=== PATIENT | male | born 1945 | race Caucasian/White ===

== ENCOUNTER 2017-12-17 01:58 | Observation (INO) | payer MEDICARE, OTHER ==
[~2017-12-17] VITALS: Ht 165.1 cm; Wt 81.0 kg
[2017-12-17] MEDS ORDERED: IOHEXOL 350 MG/ML 10 ML VIAL (for RAD DIAG) IVCONTRAST ONE (01:59)
[2017-12-17 02:03] VITALS: BP 131/73; PULSE 93; RESP 18; TEMP 98.3; O2SAT 97
[2017-12-17] MEDS ORDERED: SODIUM CHLORIDE 0.9% FLUSH 10 ML FLUSH IVF PRN ×2 (03:15→04:45)
[2017-12-17 03:30] VITALS: RESP 14; O2SAT 97
--- NOTE | 2017-12-17 03:38 | RADRPT ---
EXAM DATE/TIME: 12/17/2017 03:18 [facility] COMPARISON: No previous studies available for comparison. INDICATIONS : Cough. MEDICAL HISTORY : None. SURGICAL HISTORY : None. ENCOUNTER: Initial ACUITY: 1 day PAIN SCORE: 0/10 LOCATION: Bilateral chest FINDINGS: A single view of the chest demonstrates the lungs to be symmetrically aerated without evidence of mas s, infiltrate or effusion. The cardiomediastinal contours are unremarkable. Osseous structures are intact. CONCLUSION: No acute disease. Efren Krishnan MD on December 17, 2017 at 3:36 Board Certified Radiologist. This report was verified electronically.
[2017-12-17 03:45] LABS: AUTOMATED NEUTROPHIL # 3.7 TH/MM3 (1.8-7.7); BASOPHIL # 0.1 TH/MM3 (0-0.2); BASOPHIL % 2.2 % (0.0-2.0); EOSINOPHIL # 0.5 TH/MM3 (0-0.4); EOSINOPHIL % 7.9 % (0.0-4.0); HEMATOCRIT 41.1 % (39.0-51.0); HEMOGLOBIN 14.3 GM/DL (13.0-17.0); LYMPH % 27.7 % (9.0-44.0); LYMPHOCYTE # 1.9 TH/MM3 (1.0-4.8); MEAN CELL VOLUME 90.5 FL (80.0-100.0); MEAN CORPUSCULAR HEMOGLOBIN 31.4 PG (27.0-34.0); MEAN CORPUSCULAR HGB CONC 34.7 % (32.0-36.0); MEAN PLATELET VOLUME 8.4 FL (7.0-11.0); MONO % 7.7 % (0.0-8.0); MONOCYTE # 0.5 TH/MM3 (0-0.9); NEUT % 54.5 % (16.0-70.0); PLATELET COUNT 296 TH/MM3 (150-450); RED BLOOD COUNT 4.54 MIL/MM3 (4.50-5.90); RED CELL DISTRIBUTION WIDTH 13.3 % (11.6-17.2); WHITE BLOOD COUNT 6.8 TH/MM3 (4.0-11.0)
[2017-12-17 04:05] LABS: PROTHROMBIN TIME - PATIENT 10.4 SEC (9.8-11.6)
[2017-12-17 04:18] LABS: ALBUMIN 3.8 GM/DL (3.4-5.0); ALT (GPT) 28 U/L (12-78); AST (GOT) 17 U/L (15-37); BICARBONATE 27.8 MEQ/L (21.0-32.0); BLOOD UREA NITROGEN 13 MG/DL (7-18); CALCIUM 8.6 MG/DL (8.5-10.1); CHLORIDE 105 MEQ/L (98-107); CREATININE 1.12 MG/DL (0.60-1.30); GLOMERULAR FILTRATION RATE 65 ML/MIN (>89); GLUCOSE,RANDOM 103 MG/DL (74-106); MAGNESIUM 1.8 MG/DL (1.5-2.5); SODIUM (NA) 140 MEQ/L (136-145)
[2017-12-17 04:23] LABS: ALKALINE PHOSPHATASE 76 U/L (45-117); TOTAL BILIRUBIN ADULT 0.9 MG/DL (0.2-1.0); TOTAL PROTEIN 7.4 GM/DL (6.4-8.2); TROPONIN I LESS THAN 0.02 NG/ML (0.02-0.05)
--- NOTE | 2017-12-17 04:25 | PD ---
HPI Chief Complaint: Respiratory Symptoms Time Seen by Provider: 03:04 Travel History International Travel<30 days: No Contact w/Intl Traveler<30days: No Traveled to known affect area: No History of Present Illness HPI The patient is a 72 year old male who presents to the [facility] emergency department with a history of cough and shortness of breath that he reports began shortly after arriving in the area at the beginning of August. The patient reports that he initially attributed this to allergies. He reports that he had similar symptoms of cough and congestion in the past when he comes to [place]. He [place] He denies having a local primary care physician. He reports that he was seen in the urgent care center on November 02 and November 19 for the symptoms. He had a chest x-ray done that was unremarkable. He reports that he has been treated with a pro-air inhaler, prednisone, benzonatate capsules, doxycycline, and a azithromycin, however the symptoms continue to recur. He reports that initially the pro-air was helping, however it has not been helping recently. He reports that his symptoms get worse at night. He reports the symptoms have worsened for the last 3 nights. He reports that he develops coughing spells and shortness of breath. He reports that he develops worsening shortness of breath when he lies down at night. He denies having any chest pain or chest pressure. He reports that his cough is dry in character. He denies having any lower extremity edema, calf pain, or erythema. He denies having any prior history of coronary artery disease. He reports that he did drive to the area from his home state just after [place]. He denies any prior history of DVT or PE. On review of systems otherwise, he denies having any recent fevers, head congestion, neck pain, abdominal pain, vomiting, diarrhea, urinary symptoms, or neurologic symptoms. [facility] Past Medical History Narrative Medical The patient's past medical history is significant for anxiety disorder, history of being hard of hearing, history of prostate cancer treated with radiation therapy in 2006, prior history of tobacco use 2 packs per day, however he quit smoking 25 years ago. Cancer: Yes (hx prostrate) Diminished Hearing: Yes (hearing aids) Immunizations Current: Yes Past Surgical History Narrative Surgical The patient's past surgical history is significant for prostate surgery Genitourinary Surgery: Yes (prostate cancer) Social History Alcohol Use: No Tobacco Use: No Substance Use: No Allergies-Medications (Allergen,Severity, Reaction): Coded Allergies: No Known Allergies (Unverified , 12/17/17) Review of Systems Except as stated in HPI: all other systems reviewed are Neg General / Constitutional: No: Fever Eyes: No: Visual changes HENT: No: Headaches Cardiovascular: Positive: Dyspnea on exertion, No: Chest Pain or Discomfort Respiratory: Positive: Cough, Shortness of Breath Gastrointestinal: No: Nausea, Vomiting, Diarrhea, Abdominal Pain, Loss of Appetite Genitourinary: No: Dysuria Musculoskeletal: No: Pain Skin: No Rash Neurologic: No: Weakness Psychiatric: No: Depression Endocrine: No: Polydipsia Hematologic/Lymphatic: No: Easy Bruising Physical Exam Narrative General: The patient is a well-developed well-nourished male in no acute distress. Head and Neck exam: Head is normocephalic atraumatic. Eyes: EOMI, pupils are equal round and reactive to light. Nose: Midline septum with pink mucous membranes Mouth: Dentition unremarkable. Moist mucus membranes. Posterior oropharynx is not erythematous. No tonsillar hypertrophy. Uvula midline. Airway patent. Neck: No palpable lymphadenopathy. No nuchal rigidity. No thyromegaly. Cardiovascular: Regular rate and rhythm without murmurs, gallops, or rubs. Lungs: Clear to auscultation bilaterally. No wheezes, rhonchi, or rales. Abdomen: Soft, without tenderness to palpation in all 4 quadrants of the abdomen. No guarding, rebound, or rigidity. Normal bowel sounds are audible. No tenderness on palpation of McBurney's point. Negative Gonzalez sign. Extremities: No clubbing, cyanosis, or edema. 2+ pulses in all 4 extremities. Back: No spinous process tenderness to palpation. No costovertebral angle tenderness to palpation. Neurologic Exam: No calf tenderness on palpation. Skin Exam: No rash noted. Intact skin that is warm and dry. Data Data Last Documented VS Vital Signs Date Time Temp Pulse Resp B/P (MAP) Pulse Ox O2 Delivery O2 Flow Rate FiO2 12/17/17 06:00 102 17 141/77 (98) 100 Room Air 12/17/17 02:03 98.3 Orders Orders Complete Blood Count With Diff (12/17/17 03:05) Comprehensive Metabolic Panel (12/17/17 03:05) B-Type Natriuretic Peptide (12/17/17 03:05) Act Partial Throm Time (Ptt) (12/17/17 03:05) Prothrombin Time / Inr (Pt) (12/17/17 03:05) Magnesium (Mg) (12/17/17 03:05) Ckmb (Isoenzyme) Profile (12/17/17 03:05) Troponin I (12/17/17 03:05) Influenzae A/B Antigen (12/17/17 03:05) Blood Culture (12/17/17 03:05) Iv Access Insert/Monitor (12/17/17 03:05) Electrocardiogram (12/17/17 03:05) Ecg Monitoring (12/17/17 03:05) Oximetry (12/17/17 03:05) Oxygen Administration (12/17/17 03:05) Chest, Single Ap (12/17/17 03:05) Sodium Chloride 0.9% Flush (Ns Flush) (12/17/17 03:15) Lactic Acid Sepsis Protocol (12/17/17 03:05) CKMB (12/17/17 03:30) CKMB% (12/17/17 03:30) Levofloxacin 750 Mg Premix Inj (Levaquin (12/17/17 04:45) Ct Pulmonary Angiogram (12/17/17 04:40) Sodium Chloride 0.9% Flush (Ns Flush) (12/17/17 04:45) Methylprednisolone So Succ Inj (Solumedr (12/17/17 04:45) Albuterol-Ipratropium Neb (Duoneb Neb) (12/17/17 04:45) Iohexol 350 Inj (Omnipaque 350 Inj) (12/17/17 01:59) Labs Laboratory Tests Test 12/17/17 03:30 White Blood Count 6.8 TH/MM3 Red Blood Count 4.54 MIL/MM3 Hemoglobin 14.3 GM/DL Hematocrit 41.1 % Mean Corpuscular Volume 90.5 FL Mean Corpuscular Hemoglobin 31.4 PG Mean Corpuscular Hemoglobin Concent 34.7 % Red Cell Distribution Width 13.3 % Platelet Count 296 TH/MM3 Mean Platelet Volume 8.4 FL Neutrophils (%) (Auto) 54.5 % Lymphocytes (%) (Auto) 27.7 % Monocytes (%) (Auto) 7.7 % Eosinophils (%) (Auto) 7.9 % Basophils (%) (Auto) 2.2 % Neutrophils # (Auto) 3.7 TH/MM3 Lymphocytes # (Auto) 1.9 TH/MM3 Monocytes # (Auto) 0.5 TH/MM3 Eosinophils # (Auto) 0.5 TH/MM3 Basophils # (Auto) 0.1 TH/MM3 CBC Comment DIFF FINAL Differential Comment Prothrombin Time 10.4 SEC Prothromb Time International Ratio 1.0 RATIO Activated Partial Thromboplast Time 25.1 SEC Blood Urea Nitrogen 13 MG/DL Creatinine 1.12 MG/DL Random Glucose 103 MG/DL Total Protein 7.4 GM/DL Albumin 3.8 GM/DL Calcium Level 8.6 MG/DL Magnesium Level 1.8 MG/DL Alkaline Phosphatase 76 U/L Aspartate Amino Transf (AST/SGOT) 17 U/L Alanine Aminotransferase (ALT/SGPT) 28 U/L Total Bilirubin 0.9 MG/DL Sodium Level 140 MEQ/L Potassium Level 3.5 MEQ/L Chloride Level 105 MEQ/L Carbon Dioxide Level 27.8 MEQ/L Anion Gap 7 MEQ/L Estimat Glomerular Filtration Rate 65 ML/MIN Lactic Acid Level 1.1 mmol/L Total Creatine Kinase 122 U/L Creatine Kinase MB 1.7 NG/ML Troponin I LESS THAN 0.02 NG/ML B-Type Natriuretic Peptide LESS THAN 2 PG/ML MDM Medical Decision Making Medical Screen Exam Complete: Yes Emergency Medical Condition: Yes Medical Record Reviewed: Yes Differential Diagnosis Shortness of breath is an atypical finding of an acute coronary syndrome, versus seasonal allergies, versus COPD, versus pneumothorax, versus pneumonia, versus pulmonary embolism, versus acid reflux Narrative Course During the course of the patient's emergency department visit, the patient's history, examination, and differential diagnosis were reviewed with the patient. The patient was placed on a cardiac monitor technician with oximetry and frequent blood pressure monitoring. The patient had IV access obtained and blood work sent for analysis. The patient was initially provided duo nebs, Solu-Medrol 125 mg IV, Levaquin 750 IV. The patient's laboratory studies were reviewed and remarkable for white count of 6.8, hemoglobin 14.3, platelets 296 with 7.9 eosinophils, CMP is remarkable for GFR 65, cardiac enzymes within normal limits, BNP is less than 2, lactic acid 1.1. PT PTT within normal limits. Radiology studies were reviewed and remarkable for a chest x-ray that shows no acute abnormality. CTA to rule out PE shows no infiltrate or mass, coronary artery calcifications are noted, wall thickening of the distal esophagus is noted. There are some small paraesophageal lymph nodes noted. Endoscopy may be warranted. Given the patient's symptoms of shortness of breath and coronary artery calcifications, the patient will be admitted to the chest pain center for rule out serial cardiac enzyme protocol. The patient was given aspirin, nitroglycerin 1 inch to the chest wall. The patient was also given Protonix 40 mg IV. He was instructed regarding his CT scan findings and the importance of following up with a senior interactive developer for endoscopy. The patient's results were discussed with the patient, including the plan of care. I explained that further testing and/ or monitoring is indicated based on the patient's history, examination, and/ or laboratory findings. Therefore, I recommended admission for additional evaluation. The patient expressed understanding and was agreeable with this plan. The patient was admitted to the hospital in stable condition and sent to a bed under the care of the chest pain center. Diagnosis Primary Impression: Shortness of breath Additional Impression: Esophageal thickening Admitting Information Admitting Physician Requests: Observation Brynn Holder MD Dec 17, 2017 04:25
[2017-12-17] MEDS ORDERED: LEVOFLOXACIN 750 MG PREMIX INJ 150 ML IV ONE (04:45)
[2017-12-17] MEDS ORDERED: methylPREDNISolone SOD SUCC 125 MG/2 ML VIAL IV PUSH ONE (04:45)
[2017-12-17] MEDS: RESP: ALBUTEROL 2.5 MG/IPRATROPIUM 0.5 MG NEB (SCH) INH (04:45)
--- NOTE | 2017-12-17 05:40 | RADRPT ---
EXAM DATE/TIME: 12/17/2017 05:15 [facility] COMPARISON: No previous studies available for comparison. INDICATIONS : Shortness of breath. IV CONTRAST: 62 cc Omnipaque 350 (iohexol) IV RADIATION DOSE: 9.97 CTDIvol (mGy) MEDICAL HISTORY : Hypertension. Carcinoma, prostate. SURGICAL HISTORY : None. ENCOUNTER: Initial ACUITY: 1 day PAIN SCALE: 0/10 LOCATION: Bilateral chest TECHNIQUE: Volumetric scanning of the chest was performed using a pulmonary embolism protocol MIP images were re constructed. Using automated exposure control and adjustment of the mA and/or kV according to patien t size, radiation dose was kept as low as reasonably achievable to obtain optimal diagnostic quality images. DICOM format image data is available electronically for review and comparison. Follow-up recommendations for detected pulmonary nodules are based at a minimum on nodule size and pa tient risk factors according to Fleischner Society Guidelines. FINDINGS: PULMONARY ARTERIES: No filling defects are seen in the pulmonary arteries through the segmental level. LUNGS: There is no consolidation or pneumothorax . No concerning pulmonary nodule is visualized. Calcified granuloma right lung. PLEURAE: There is no pleural thickening or pleural effusion. MEDIASTINUM: There is good visualization of the great vessels of the middle mediastinum. No evidence of mediastin al or hilar adenopathy/mass. Coronary artery calcifications. MUSCULOSKELETAL: Within normal limits for patient age. MISCELLANEOUS: The visualized upper abdominal organs demonstrate no acute abnormality. Circumferential wall thickeni ng distal esophagus. There are some small paraesophageal lymph nodes. CONCLUSION: 1. No infiltrate or mass. 2. Coronary artery calcifications. 3. Wall thickening distal esophagus. There are some small paraesophageal lymph nodes. Endoscopy may b e oriented. Efren Krishnan MD on December 17, 2017 at 5:35 Board Certified Radiologist. This report was verified electronically.
[2017-12-17 06:00] VITALS: BP 141/77; PULSE 102; RESP 17; O2SAT 100
[2017-12-17] MEDS ORDERED: ASPIRIN 81 MG CHEW TAB CHEW ONE (06:30)
[2017-12-17] MEDS ORDERED: PANTOPRAZOLE SODIUM 40 MG VIAL IV PUSH ONE (06:30)
[2017-12-17] MEDS ORDERED: NITROGLYCERIN 2% OINT 1 GM PACKET TOPICAL ONE (06:30)
[2017-12-17] MEDS ORDERED: ACETAMINOPHEN 500 MG CPLT PO PRN (06:30)
[2017-12-17] MEDS ORDERED: SODIUM CHLORIDE 0.9% FLUSH 10 ML FLUSH IV FLUSH PRN (06:30)
[2017-12-17 07:24] LABS: TROPONIN I LESS THAN 0.02 NG/ML (0.02-0.05)
[2017-12-17] MEDS ORDERED: LORazepam 0.5 MG TAB PO ONE (09:00)
[2017-12-17] MEDS ORDERED: SODIUM CHLORIDE 0.9% FLUSH 10 ML FLUSH IV FLUSH SCH (09:00)
[2017-12-17] MEDS ORDERED: FAMOTIDINE 20 MG TAB PO SCH (09:00)
[2017-12-17] MEDS ORDERED: PARO30TA2 PO (09:06)
[2017-12-17] MEDS ORDERED: CIAL10TA PO (09:06)
[2017-12-17] MEDS ORDERED: ATOR10TA15 PO (09:06)
[2017-12-17] MEDS ORDERED: LISI10TA3 PO (09:06)
[2017-12-17] MEDS ORDERED: BUSP15TA PO (09:06)
[2017-12-17] MEDS ORDERED: ASPI-516 CHEW (09:06)
[2017-12-17] MEDS ORDERED: VIAG50TA PO (09:06)
[2017-12-17] MEDS ORDERED: LEVO50TA4 PO (09:06)
[2017-12-17 09:08] VITALS: BP 124/62; PULSE 99; RESP 18; O2SAT 99
[2017-12-17] MEDS ORDERED: LISINOPRIL 10 MG TAB PO SCH (09:30)
--- NOTE | 2017-12-17 09:33 | HHI.HP ---
HPI Primary Care Physician No Primary Care Physician Chief Complaint Shortness of breath and cough History of Present Illness This is a 72-year-old male with history of hypertension, hyperlipidemia, hypothyroidism, depression that presents to ED with complaint of shortness breath and cough for couple months. States this happens every time he comes to [place]. He has been to an urgent care center twice was given medication both times up a little bit but recurs after medicine ends. Believes he is on an antibiotic, prednisone, and inhaler one point. Denies any knowledge of coronary artery disease and states he has had stress test December 2016 in [place] that was okay. Not recall ever having a cardiac catheterization. Denies having any chest discomfort. His complaint is shortness of breath and coughing. Cough has been nonproductive. Denies fevers or chills. Denies inspirational chest discomfort. He is going to try to go back to [place] tomorrow. Review of Systems General: Patient denies fevers, chills recent, and recent travel HEENT: Patient denies headache, sore throat, difficulty swallowing. Cardiovascular: Denies chest discomfort as mentioned above. Denies sensation of heart beating rapidly or irregularly. No syncope. Denies diaphoresis. Respiratory: He has had a nonproductive cough. He has been short of breath. Denies inspirational chest discomfort. Denies wheezing or hemoptysis. GI: Patient denies nausea, vomiting, diarrhea, abdominal pain, bloody stools. Musculoskeletal: Patient denies joint pain or edema. Denies calf pain or edema. Neurovascular: Patient denies numbness, tingling, weakness in extremities. Denies headache. Endocrine: Denies polyuria and polydipsia. Hematologic: Denies easy bruising. Skin: Denies rash or itching. Past Family Social History Allergies: Coded Allergies: No Known Allergies (Unverified , 12/17/17) Past Medical History Hypertension, hyperlipidemia, hypothyroidism, depression. Denies CAD and diabetes. Reported Medications Reported Meds & Active Scripts Active Reported Cialis (Tadalafil) 10 Mg Tab 10 Mg PO DAILY PRN Do not exceed 1 dose/day. Viagra (Sildenafil Citrate) 50 Mg Tab 50 Mg PO DAILY PRN Aspirin 81 Mg Chew 81 Mg CHEW DAILY Lisinopril 10 Mg Tab 10 Mg PO DAILY Paroxetine (Paroxetine HCl) 30 Mg Tab 30 Mg PO DAILY Levothyroxine (Levothyroxine Sodium) 50 Mcg Tab 50 Mcg PO DAILY Buspirone (Buspirone HCl) 15 Mg Tab 15 Mg PO BID Atorvastatin (Atorvastatin Calcium) 10 Mg Tab 10 Mg PO HS Active Ordered Medications Current Medications Medications (Trade) Dose Ordered Sig/Brandy Route Start Time Stop Time Status Last Admin (NS Flush) 2 ml UNSCH PRN IVF 12/17/17 03:15 (NS Flush) 2 ml UNSCH PRN IVF 12/17/17 04:45 (NS Flush) 2 ml UNSCH PRN IV FLUSH 12/17/17 06:30 (NS Flush) 2 ml BID IV FLUSH 12/17/17 09:00 (Tylenol) 500 mg Q4H PRN PO 12/17/17 06:30 (Pepcid) 20 mg BID PO 12/17/17 09:00 (Lipitor) 10 mg HS PO 12/17/17 21:00 UNV (Buspar) 15 mg BID PO 12/17/17 09:30 UNV (Synthroid) 50 mcg DAILY PO 12/17/17 09:30 UNV (Prinivil) 10 mg DAILY PO 12/17/17 09:30 UNV Non-Formulary Medication 30 mg DAILY PO 12/17/17 09:30 UNV Family History Denies family history of CAD. Social History Quit smoking 20 years ago but prior that he smoked on average up to 2 packs of cigarettes a day denies alcohol or illicit drug use. Physical Exam Vital Signs Vital Signs Date Time Temp Pulse Resp B/P (MAP) Pulse Ox O2 Delivery O2 Flow Rate FiO2 12/17/17 09:08 99 18 124/62 (82) 99 Room Air 12/17/17 06:00 102 17 141/77 (98) 100 Room Air 12/17/17 03:30 14 97 Room Air 12/17/17 02:03 98.3 93 18 131/73 (92) 97 Physical Exam GENERAL: This is a well-nourished, well-developed patient, in no apparent distress. Patient speaks in clear complete sentences. Patient is pleasant. HEENT: Head is atraumatic and normocephalic. Neck is supple without lymphadenopathy and trachea is midline. No JVD or carotid bruits. CARDIOVASCULAR: Regular rate and rhythm without murmurs, gallops, or rubs. RESPIRATORY: Clear to auscultation. Breath sounds equal bilaterally. No wheezes , rales, or rhonchi. Chest wall is nontender. No use of accessory muscles. GASTROINTESTINAL: Abdomen is nontender, nondistended. Abdomen soft. No obvious pulsatile mass or bruit. No CVA tenderness. Strong femoral pulses bilaterally. Normal bowel sounds in all quadrants. MUSCULOSKELETAL: Patient is moving upper and lower extremities freely. No calf tenderness or edema, no Homans sign. Strong pulses in upper and lower extremities. NEUROLOGICAL: Patient is alert and oriented. Cranial nerves 2-12 are grossly intact. No focal deficits and speech is clear. SKIN: No rash and turgor is normal. Laboratory Laboratory Tests Test 12/17/17 03:30 12/17/17 06:40 White Blood Count 6.8 Red Blood Count 4.54 Hemoglobin 14.3 Hematocrit 41.1 Mean Corpuscular Volume 90.5 Mean Corpuscular Hemoglobin 31.4 Mean Corpuscular Hemoglobin Concent 34.7 Red Cell Distribution Width 13.3 Platelet Count 296 Mean Platelet Volume 8.4 Neutrophils (%) (Auto) 54.5 Lymphocytes (%) (Auto) 27.7 Monocytes (%) (Auto) 7.7 Eosinophils (%) (Auto) 7.9 Basophils (%) (Auto) 2.2 Neutrophils # (Auto) 3.7 Lymphocytes # (Auto) 1.9 Monocytes # (Auto) 0.5 Eosinophils # (Auto) 0.5 Basophils # (Auto) 0.1 CBC Comment DIFF FINAL Differential Comment Prothrombin Time 10.4 Prothromb Time International Ratio 1.0 Activated Partial Thromboplast Time 25.1 Blood Urea Nitrogen 13 Creatinine 1.12 Random Glucose 103 Total Protein 7.4 Albumin 3.8 Calcium Level 8.6 Magnesium Level 1.8 Alkaline Phosphatase 76 Aspartate Amino Transf (AST/SGOT) 17 Alanine Aminotransferase (ALT/SGPT) 28 Total Bilirubin 0.9 Sodium Level 140 Potassium Level 3.5 Chloride Level 105 Carbon Dioxide Level 27.8 Anion Gap 7 Estimat Glomerular Filtration Rate 65 Lactic Acid Level 1.1 Total Creatine Kinase 122 120 Creatine Kinase MB 1.7 2.0 Troponin I LESS THAN 0.02 LESS THAN 0.02 B-Type Natriuretic Peptide LESS THAN 2 Date/Time Source Procedure Growth Status 12/17/17 03:30 Blood Peripheral Aerobic Blood Culture Pending Received 12/17/17 03:30 Blood Peripheral Anaerobic Blood Culture Pending Received 12/17/17 03:30 Nasal Aspirate Influenza Types A,B Antigen (JORGE) - Final NEGATIVE FOR FLU A AND B ANTIGEN.... Complete Result Diagram: 12/17/1732912/17/17329 Imaging Chest x-ray reveals nothing acute. CT pulmonary angiogram read by radiologist as no PE. There is wall thickening of the distal esophagus and paraesophageal lymph nodes. Recommend outpatient endoscopy. Course EKGs are normal sinus rhythm without significant ST segment depressions or elevations. Caprini VTE Risk Assessment Caprini VTE Risk Assessment: Mod/High Risk (score >= 2) Caprini Risk Assessment Model Point Value = 1 Point Value = 2 Point Value = 3 Point Value = 5 Age 41-60 Minor surgery BMI > 25 kg/m2 Swollen legs Varicose veins or History of unexplained or recurrent spontaneous Oral contraceptives or hormone replacement Sepsis (< 1 month) Serious lung disease, including pneumonia (< 1 month) Abnormal pulmonary function Acute myocardial infarction Congestive heart failure (< 1 month) History of inflammatory bowel disease Medical patient at bed rest Age 61-74 Arthroscopic surgery Major open surgery (> 45 min) Laparoscopic surgery (> 45 min) Malignancy Confined to bed (> 72 hours) Immobilizing plaster cast Central venous access Age >= 75 History of VTE Family history of VTE Factor V Leiden Prothrombin [id number] Lupus anticoagulant Anticardiolipin antibodies Elevated serum homocysteine Heparin-induced thrombocytopenia Other congenital or acquired thrombophilia Stroke (< 1 month) Elective arthroplasty Hip, pelvis, or leg fracture Acute spinal cord injury (< 1 month) Prophylaxis Regimen Total Risk Factor Score Risk Level Prophylaxis Regimen 0-1 Low Early ambulation 2 Moderate Order ONE of the following: *Sequential Compression Device (SCD) *Heparin 5000 units SQ BID 3-4 Higher Order ONE of the following medications: *Heparin 5000 units SQ TID *Enoxaparin/Lovenox 40 mg SQ daily (WT < 150 kg, CrCl > 30 mL/min) *Enoxaparin/Lovenox 30 mg SQ daily (WT < 150 kg, CrCl > 10-29 mL/min) *Enoxaparin/Lovenox 30 mg SQ BID (WT < 150 kg, CrCl > 30 mL/min) AND/OR *Sequential Compression Device (SCD) 5 or more Highest Order ONE of the following medications: *Heparin 5000 units SQ TID (Preferred with Epidurals) *Enoxaparin/Lovenox 40 mg SQ daily (WT < 150 kg, CrCl > 30 mL/min) *Enoxaparin/Lovenox 30 mg SQ daily (WT < 150 kg, CrCl > 10-29 mL/min) *Enoxaparin/Lovenox 30 mg SQ BID (WT < 150 kg, CrCl > 30 mL/min) AND *Sequential Compression Device (SCD) Assessment and Plan Assessment and Plan * Dyspnea: Patient has had serial cardiac enzymes and EKGs for ruling out purposes. Seen by Dr. Moris Quiros of cardiology in the chest pain center. CT pulmonary diagram also revealed coronary calcifications. At this time patient will undergo a Lexiscan myocardial perfusion stress test. He will be discharged home if the stress test is nonischemic with instructions to follow- up with PCP. Return to ED for interval issues. * Hypertension: Resume medications. * Hyperlipidemia: Continue medications. * Hypothyroidism: Continue medication. * Anxiety/depression: Continue medications. Patient is stable at this time. He is agreeable to this plan. Andrew Rangel Dec 17, 2017 09:33
--- NOTE | 2017-12-17 09:58 | HHI.DCPOC ---
Discharge Care Plan Diagnosis: (1) Shortness of breath (2) Esophageal thickening (3) Hypertension (4) Hyperlipidemia Goals to Promote Your Health You will need to follow up with GI to have an endoscopy performed to evaluate esophageal thickening and paraesophageal lymph nodes. * To prevent worsening of your condition and complications * To maintain your health at the optimal level Directions to Meet Your Goals Take your medications as prescribed Follow your dietary instruction Follow activity as directed Keep your appointments as scheduled Take your immunizations and boosters as scheduled If your symptoms worsen call your PCP, if no PCP go to Urgent Care Center or Emergency Room Smoking is Dangerous to Your Health. Avoid second hand smoke Call the 24-hour hour crisis hotline for domestic abuse at Andrew Rangel Dec 17, 2017 09:58
[2017-12-17 10:11] VITALS: BP 106/86; PULSE 102; RESP 18; O2SAT 98
[2017-12-17 11:05] VITALS: BP 134/78
[2017-12-17] MEDS ORDERED: PARoxetine HCL 20 MG TAB PO SCH (12:00)
[2017-12-17] MEDS ORDERED: busPIRone HCL 5 MG TAB PO SCH (12:00)
[2017-12-17] MEDS ORDERED: REGADENOSON INJ 0.4 MG/5 ML SYR ONE (12:00)
[2017-12-17] MEDS ORDERED: LEVOTHYROXINE SODIUM 50 MCG TAB PO SCH (12:00)
--- NOTE | 2017-12-17 13:57 | RADRPT ---
EXAM DATE/TIME: 12/17/2017 11:26 [facility] COMPARISON: No previous studies available for comparison. INDICATIONS : Substernal chest pain with dyspnea. Angina. DOSE: 27.3 mCi Tc99m Myoview at stress. 8.5 mCi Tc99m Myoview at rest. 0.4 mg Lexiscan STRESS SYMPTOMS: None. EJECTION FRACTION: > 70% MEDICAL HISTORY : Carcinoma, prostate. SURGICAL HISTORY : Prostatectomy. ENCOUNTER: Initial ACUITY: 1 day PAIN SCALE: 6/10 LOCATION: Substernal chest TECHNIQUE: The patient underwent pharmacologic stress with infusion of prescribed dose. Continuous ECG tracing was monitored during stress. Gated SPECT imaging was performed after stress and conventional SPECT i maging was performed at rest. The examination was performed on a SPECT/CT scanner, both attenuation and non-corrected datasets were reviewed. FINDINGS: DISTRIBUTION: The maximum perfused segment at stress is in the lateral wall. wall. PERFUSION STUDY: The pattern of perfusion at stress is within normal limits. GATED STUDY: There is intact wall motion and thickening without hypokinetic or dyskinetic segments. CONCLUSION: 1. Normal wall motion and calculated ejection fraction. 2. No fixed or reversible defects to suggest ischemia or infarction. RISK CATEGORY: Low (<1% Annual Mortality Rate) Troy Whipple MD on December 17, 2017 at 13:53 Board Certified Radiologist. This report was verified electronically.
--- NOTE | 2017-12-17 16:02 | EKG ---
Date Performed: 12/17/2017 Time Performed: 06:53:58 PTAGE: 72 years EKG: Sinus rhythm MARKED LEFT AXIS DEVIATION LOW QRS VOLTAGE IN EXTREMITY LEADS ABNORMAL ECG PREVIOUS TRACING : 12/17/2017 03.29 Since previous tracing, no significant change noted DOCTOR: Moris Quiros Interpretating Date/Time 12/17/2017 16:00:18
--- NOTE | 2017-12-17 16:02 | EKG ---
Date Performed: 12/17/2017 Time Performed: 03:29:00 PTAGE: 72 years EKG: Sinus rhythm BORDERLINE LEFT AXIS DEVIATION BORDERLINE ECG NO PREVIOUS TRACING DOCTOR: Moris Quiros Interpretating Date/Time 12/17/2017 16:01:10
--- NOTE | 2017-12-17 16:05 | EKG ---
Date Performed: 12/17/2017 Time Performed: 10:06:56 PTAGE: 72 years EKG: Sinus rhythm PATTERN CONSISTENT WITH PULMONARY DISEASE LEFT ANTERIOR FASCICULAR BLOCK ABNORMAL ECG PREVIOUS TRACING : 12/17/2017 06.53 Since previous tracing, no significant change noted DOCTOR: Moris Quiros Interpretating Date/Time 12/17/2017 16:03:04
--- NOTE | 2017-12-17 16:05 | TR ---
Date Performed: 12/17/2017 Time Performed: 12:06:58 DOCTOR: Moris Quiros DRUG LIST: CLINICAL HISTORY: REASON FOR TEST: REASON FOR ENDING: OBSERVATION: CONCLUSION: Lexiscan stress test was performed under standard four minute protocol. Radionuclid e was injected one minute prior to ending the test. No electrocardiographic abormalities were present to suggest ischemia. Nuclear imaging and interpretation are pending. COMMENTS:
[2017-12-17] MEDS ORDERED: ATORVASTATIN 10 MG TAB PO SCH (21:00)
[2017-12-18] MEDS ORDERED: ASPIRIN 325 MG TAB PO SCH (09:00)
[2017-12-18] MEDS ORDERED: PNEUMOCOCCAL POLYVALENT INJ 25 MCG/0.5 ML SYR IM ONE (10:00)
[2017-12-18] MEDS ORDERED: INFLUENZA VIRUS VACCINE (QUADRIVALENT) 0.5 ML SYR IM ONE (10:00)
== END 2017-12-17 15:01 | disposition home or self-care (01) ==
LOC: NEPC 01:58 → NEDA 06:25 → NEPFCDU 12:27
PROVIDERS: ADMIT Internal Medicine Interventional Cardiology; ATTEND Internal Medicine Interventional Cardiology
DX: R06.00 Dyspnea, unspecified (principal); R06.02 Shortness of breath; R05 Cough; I44.4 Left anterior fascicular block; R94.31 Abnormal electrocardiogram [ECG] [EKG]; I10 Essential (primary) hypertension; E78.5 Hyperlipidemia, unspecified; E03.9 Hypothyroidism, unspecified; F41.9 Anxiety disorder, unspecified; F32.9 Major depressive disorder, single episode, unspecified; H91.90 Unspecified hearing loss, unspecified ear; Z79.899 Other long term (current) drug therapy; Z79.82 Long term (current) use of aspirin; Z87.891 Personal history of nicotine dependence; Z85.46 Personal history of malignant neoplasm of prostate; Z92.3 Personal history of irradiation
CPT/HCPCS: 71045; 71275; 78452; 80053; 82550; 82552; 83605; 83735; 83880; 84484; 85025; 85610; 85730; 87040; 87804; 93005; 93017; 94640; 94664; 96365; 96375; 99285; A9502; C9113; G0378; J1956; J2785; J2930; Q9967